=== PATIENT | female | born 1965 | race African-American/Black ===

== ENCOUNTER 2019-04-22 20:43 | Emergency (ER) | payer MEDICAID, OTHER ==
[~2019-04-22] VITALS: Ht 157.5 cm; Wt 86.2 kg
[2019-04-22 20:52] VITALS: BP 130/81
--- NOTE | 2019-04-22 21:10 | NUR ---
BIBSELF C/O DYSURIA X2 DAYS. +FREQ, +URGENCY, -FLANK PAIN, -HEMATURIA. urine collected and sent to the lab
[2019-04-22 21:11] LABS: APPEARANCE,URINE Cloudy (CLEAR); BILIRUBIN,URINE SMALL (NEGATIVE); BLOOD, URINE Trace-intact Ery/uL (NEGATIVE); KETONES,URINE Trace (NEGATIVE); LEUKOCYTE ESTERASE ,URINE Large (NEGATIVE); NITRITE, URINE Positive (NEGATIVE); PROTEIN,URINE 100 mg/dl (NEGATIVE); UGLUCOSE 100 MG/DL mg/dL (NEGATIVE)
[2019-04-22 21:19] LABS: COLOR,URINE AMBER (YELLOW)
[2019-04-22 21:26] LABS: BACTERIA,URINE Moderate /HPF (None Seen); SQUAMOUS EPITHELIAL CELL,UR Few /HPF (None Seen)
--- NOTE | 2019-04-22 21:54 | NUR ---
Patient discharged to home in stable condition. Rx and Written and verbal after care instructions given. Patient verbalizes understanding of instruction.
== END 2019-04-22 21:56 | disposition home or self-care (01) ==
LOC: ER 20:45
DX: N39.0 Urinary tract infection, site not specified (principal); Z98.890 Other specified postprocedural states
CPT/HCPCS: 81000-TC; 84703-TC; 87086-TC; 87186-TC

== ENCOUNTER 2019-12-29 08:13 | Emergency (ER) | payer OTHER ==
[~2019-12-29] VITALS: Ht 157.5 cm; Wt 77.1 kg
--- NOTE | 2019-12-29 08:25 | NUR ---
patient came in to the er c/o dysuria since this morning 10/10 pain scale. On room air, breathing evenly and unlabored. Kept comfortable, will continue to monitor accordingly.
--- NOTE | 2019-12-29 08:34 | NUR ---
urine collected and sent to lab
[2019-12-29 08:36] LABS: APPEARANCE,URINE CLOUDY (CLEAR); BILIRUBIN,URINE NEGATIVE (NEGATIVE); BLOOD, URINE MODERATE Ery/uL (NEGATIVE); COLOR,URINE YELLOW (YELLOW); KETONES,URINE NEGATIVE (NEGATIVE); LEUKOCYTE ESTERASE ,URINE MODERATE (NEGATIVE); NITRITE, URINE NEGATIVE (NEGATIVE); PROTEIN,URINE TRACE mg/dl (NEGATIVE); UGLUCOSE NEGATIVE (NEGATIVE); UROBILINOGEN,URINE 0.2 EU/dL (0.2)
[2019-12-29 08:37] VITALS: BP 134/80
--- NOTE | 2019-12-29 08:55 | NUR ---
Patient discharged to home in stable condition. Written and verbal after care instructions given. Patient verbalizes understanding of instruction.
[2019-12-29 09:01] LABS: BACTERIA,URINE Many /HPF (None Seen); SQUAMOUS EPITHELIAL CELL,UR Few /HPF (None Seen); WBC,URINE TOO NUMEROUS TO COUN /HPF (0-3)
== END 2019-12-29 08:55 | disposition home or self-care (01) ==
LOC: ER 08:17
DX: N39.0 Urinary tract infection, site not specified (principal); Z98.890 Other specified postprocedural states
CPT/HCPCS: 81000-TC; 87086-TC

== ENCOUNTER 2022-01-18 17:19 | Emergency (ER) | payer OTHER ==
[~2022-01-18] VITALS: Ht 157.5 cm; Wt 89.8 kg
--- NOTE | 2022-01-18 17:50 | NUR ---
THE PATIENT BIBS FOR C/O L UPPER EXTREMITY NUMBNESS AND SWELLING NOTED AT AROUND 1400. DENIES ANY RECENT INJURY. THE PATIENT C/O LEFT UPPER EXTREMITY PAIN 5/10. IN ROOM AIR AND DENIES SOB. RESPIRATION REGULAR AND UNLABORED. WILL CONTINUE TO MONITOR THE PATIENT.
[2022-01-18] MEDS ORDERED: CARI350T PO (19:00)
[2022-01-18 19:17] VITALS: BP 142/72
--- NOTE | 2022-01-18 19:17 | NUR ---
Patient discharged to home in stable condition. Written and verbal after care instructions given. Patient verbalizes understanding of instruction.
== END 2022-01-18 19:18 | disposition home or self-care (01) ==
LOC: ER 17:26
DX: M54.12 Radiculopathy, cervical region (principal); M79.602 Pain in left arm; Z98.890 Other specified postprocedural states; Z79.899 Other long term (current) drug therapy
CPT/HCPCS: 70450-TC; 72125-TC; 93971-TC